=== PATIENT | female | born 1965 | race American Indian/Alaskan Native ===

== ENCOUNTER 2021-03-15 16:35 | Emergency (ER) | payer SELFPAY ==
[2021-03-15 20:07] VITALS: BP 143/87
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
== END 2021-03-15 21:15 | disposition home or self-care (01) ==
LOC: ED 16:35
DX: M54.5 Low back pain (principal); G89.29 Other chronic pain; Z79.899 Other long term (current) drug therapy
CPT/HCPCS: 99282